=== PATIENT | male | born 1970 | race Hispanic/Latino ===

== ENCOUNTER 2020-11-26 09:51 | Outpatient (CLI) | payer OTHER ==
--- NOTE | 2020-11-26 16:26 | Vascular Lab Report ---
ULTRASOUND RENAL ARTERY DUPLEX IMAGING INDICATION / CLINICAL INFORMATION: RENOVASCULAR HYPERTENSION. COMPARISON: None available. FINDINGS: Technically difficult exam. RIGHT KIDNEY: Size = 11.3 cm. - Echogenicity: Normal. - Cortical thickness: Normal. - Hydronephrosis: None. - Cyst / Mass: None. - Stones: None seen.. - Renal resistive indices (RI): Not calculated. (Normal < 0.70) - Renal/aortic ratio (RAR): 0.9 (Normal < 3.5) LEFT KIDNEY: Size = 11.9 cm. - Echogenicity: Normal. - Cortical thickness: Normal. - Hydronephrosis: None. - Cyst / Mass: None. - Stones: None seen.. - Renal resistive indices (RI): Not calculated. (Normal < 0.70) - Renal/aortic ratio (RAR): 0.9 (Normal < 3.5) URINARY BLADDER: Not imaged. FREE FLUID: None. ADDITIONAL FINDINGS: None. IMPRESSION 1. Technically difficult exam. 2. Bilateral renal resistive indices were not calculated bilaterally, however there is no sonographic evidence of renal artery stenosis. Scribed by: Merced Soliz RDMS, RVT Scribed: 11/26/2020 12:53 PM I have reviewed the images, agree with this report, and edited this report as needed. Signer Name: Marco Bush MD Signed: 11/26/2020 4:21 PM Workstation Name: [employer]
== END 2020-11-26 09:52 | disposition home or self-care (01) ==
LOC: VAS 09:51
PROVIDERS: ATTEND Surgery Vascular Surgery
DX: I15.0 Renovascular hypertension (principal)
CPT/HCPCS: 93975